=== PATIENT | female | born 1975 | race Caucasian/White ===

== ENCOUNTER 2022-04-22 09:23 | Outpatient (CLI) | payer OTHER, SELFPAY ==
[2022-04-22 14:15] LABS: Chloride* 105 mmol/L (96-114); Sodium* 139 mmol/L (135-149)
[2022-04-22 14:16] LABS: Potassium* 4.6 mmol/L (3.6-5.1)
[2022-04-22 14:18] LABS: Blood Urea Nitrogen* 15 mg/dL (5-24); Carbon Dioxide* 29 mmol/L (20-32); Cholesterol* 195 mg/dL (90-199); Creatinine* 0.8 mg/dL (0.5-1.5); Estimated Glomerular Filt Rate 93 ml/min
[2022-04-22 14:19] LABS: Calcium* 9.3 mg/dL (8.4-10.6); Glucose* 103 mg/dL (60-115); HDL Cholesterol* 68 mg/dL (>=50); LDL Cholesterol Calculated 111 mg/dL (<100); Triglycerides* 80 mg/dL (40-149)
== END 2022-04-22 09:24 | disposition home or self-care (01) ==
PROVIDERS: PCP Family Medicine; Visit Provider Family Medicine
DX: Z00.00 Encounter for general adult medical examination without abnormal findings (principal); Z13.1 Encounter for screening for diabetes mellitus; Z13.6 Encounter for screening for cardiovascular disorders
CPT/HCPCS: 80048; 80061

== ENCOUNTER 2023-02-24 09:28 | Outpatient (CLI) | payer BC, SELFPAY ==
--- NOTE | 2023-02-24 09:15 | CRLHL7_ITS ---
For Patients: As a result of the Century Cures Act, medical imaging exams and procedure reports are released immediately into your electronic medical record. You may view this report before your referring provider. If you have questions, please contact your health care provider. BILATERAL SCREENING MAMMOGRAM WITH COMPUTER-AIDED DETECTION AND TOMOSYNTHESIS TECHNIQUE: CC, MLO and Implant displaced views were obtained. These mammographic images have been obtained using full-field digital technique. These mammographic images were interpreted with the benefit of computer-aided detection. Breast Tomosynthesis was used in this interpretation. COMPARISON FILM: 07/06/21, 07/06/18. FINDINGS: The breasts are heterogeneously dense, which may obscure small masses IMPRESSION: There is no radiographic evidence for malignancy. ASSESSMENT: BI-RADS Category 2: Benign RECOMMENDATION: Routine screening mammogram in 1 year. A lay language report of this examination will be provided to the patient. Rafa Jimenez M.D. Diagnostic Radiologist [email or web address] MARTHA/Dictated by: Rafa Jimenez MD @ 02/24/2023 10:58:00 AM (Electronically Signed)
== END 2023-02-24 09:29 | disposition home or self-care (01) ==
LOC: MAMMO 09:28
PROVIDERS: PCP Family Medicine; Visit Provider Family Medicine
DX: Z12.31 Encounter for screening mammogram for malignant neoplasm of breast (principal); R92.2 Inconclusive mammogram
CPT/HCPCS: 77063; 77067

== ENCOUNTER 2025-01-24 09:53 | Outpatient (CLI) | payer OTHER, SELFPAY | END 2025-01-24 09:54 | disposition home or self-care (01) | PROVIDERS: PCP Family Medicine; Visit Provider Family Medicine | DX: F41.9 Anxiety disorder, unspecified (principal); Z13.0 Encounter for screening for diseases of the blood and blood-forming organs and certain disorders involving the immune mechanism; Z13.1 Encounter for screening for diabetes mellitus; Z13.29 Encounter for screening for other suspected endocrine disorder | CPT/HCPCS: 80048; 84443 ==

== ENCOUNTER 2025-03-07 14:52 | Outpatient (CLI) | payer OTHER, SELFPAY ==
--- NOTE | 2025-03-07 15:00 | CRLHL7_ITS ---
For Patients: As a result of the Century Cures Act, medical imaging exams and procedure reports are released immediately into your electronic medical record. You may view this report before your referring provider. If you have questions, please contact your health care provider. INDICATION: BILATERAL SCREENING MAMMOGRAM W/IMPLANTS, ASYMPTOMATIC 49 Y/O FEMALE COMPARISON: 02/24/2023, 07/06/2021, 07/06/2018 TECHNIQUE: Digital mammogram in CC and MLO projections including computer-aided detection (CAD) and tomosynthesis. BREAST COMPOSITION: The breasts are heterogeneously dense, which may obscure small masses. FINDINGS: No suspicious findings. ASSESSMENT: BI-RADS 2 Benign RECOMMENDATION: Annual screening mammogram. A lay language report of this examination will be provided to the patient. Dictated by: Rafa Jimenez MD @ 03/10/2025 09:48:42 (Electronically Signed)
--- OUTSIDE RECORDS SUMMARY | 2025-03-08 00:27 | XMS_ITS | Data Portability ---
Author Organization DARIEN Hou RECOOPERER, [id number] Address [address] [place] [facility] [place] [address] Assessment No assessment recorded. Plan of Treatment Reminders Order Date Submit Date Provider Last Modified By Organization Details Last Modified Time Details Appointments None recorded. Lab TSH, serum or plasma 2022 023 [facility], [address] [place] [address], [address], [place], [address], 3 00:33:35 hemoglobin A1c, QN, blood 2022 023 [facility], [address] [place] [address], [address], [place], [address], 3 00:29:48 hemoglobin (Hb), fingerstick , blood 2019 020 [email or web address] [id number]_gzzthiv le_edina, [address], [facility] [address], [place], [address], 0 18:18:00 hemoglobin (Hb), fingerstick , blood 2019 020 [email or web address] Zy772_miyngec le_[place], [address] [facility] [address], [place], [address], 0 11:05:22 test, urine 2019 020 [email or web address] [id number]_zxwrcts le_[facility], [address], [place], [address], 0 11:05:22 pathology study 2019 020 [facility], [address] [place], [address], 0 11:07:41 Referral None recorded. Procedures None recorded. Surgeries None recorded. Imaging US, pelvis, transabdomi nal + transvagina l 2019 020 [email or web address] [id number] baldwin, [address], [address], [place], [address], 0 13:37:36 Medication Orders estradiol 0.05 mg/24 hr semiweekly transdermal patch 2022 023 [id number], [address] [place], [place], [address], 3 15:21:16 Patient TargetsNo targets recorded. Patient InstructionsNo instructions recorded. Reason for Referral None Reported. Results Created Date Observation Date Name Description Value Unit Range Abnormal Flag Note LastModifiedBy Organization Detail LastModifiedTime 09/16/20 20 09/16/2020 hemog lobin (Hb), finge rstic k, blood fingerstick hemoglobin 13.2 g/dL 12.0-1 5.0 Not Available [id number]_mcvprvwparvin baldwin [address], [place], [address], 09/16/2020 16:54:57 08/17/20 20 08/17/2020 pregn aleida test, urine Unknown Analyte negati ve Not Available [id number]_xqaegjason clayton [address], [place], [address], 08/17/2020 10:42:09 11/30/08/17/2020 patho logy study case report See note CASE REPOR T ----- ----- ----- ----- ----- ----- ----- ----- Surgi boy Patho logy Case: [id number] Autho raul cortez Provi vishal: Christiano Henning MD Colle cted: 08/17 10:23 AM [facility] ing [facility] elizabeth: 08/17 03:11 PM [facility] Patho logis t: Jenny Griffin MD Speci men: Endom etriu m, Biops y FINAL DIAGN OSIS ----- ----- ----- ----- ----- ----- ----- ----- Endom etriu m, biops yBeni gn proli ferat ing endom etriu m. Elect abe tyson by Jenny Griffin MD on 2019 at 10:07 AM GROSS DESCR IPTIO N ----- ----- ----- ----- ----- ----- ----- ----- EMB: Ceci tyson, 0.40 g. IT-1 MICRO SCOPI C DESCR IPTIO N ----- ----- ----- ----- ----- ----- ----- ----- Secti ons show maylinig n proli ferat ing endom etriu m. There is no hyper plasi a or malig rodney . Benig suki endoc ervix is also prese nt. Not Available [facility] [address] [place], [address], 08/18/2020 11:07:41 08/17/20 20 08/17/2020 hemog lobin (Hb), finge rstic k, blood fingerstick hemoglobin 12.2 g/dL 12.0-1 5.0 Not Available [id number] yaa_[place] [address], [place], [address], 08/17/2020 10:40:03 07/14/20 23 07/14/2023 HEMOG LOBIN A1C hemoglobin A1C 5.5 % <5.7 Kristin l <5.7% Predi abete s 5.7-6 .4% Diabe remington 6.5% or highe r Note: Adopt ed from ADA conse nsus guide lines . Not Available [facility] [address], [place], [address], 07/15/2023 00:29:48 07/14/2007/14/2023 TSH WITH REFLE X TO FREE T4 TSH 1.51 uIU/m L 0.30-4 .20 Not Available [facility] [address] [facility] [address], [place], [address], 07/15/2023 00:33:35 08/17/20 20 US, pelvi s, trans abdom inal + trans vagin al No observ ation record ed. lkoidahl [address] [facility], [place], [address], 08/18/2020 09:19:47 Result Notes None recorded. Procedures Surgical History Date Name Laterality Status Provider Name and Address Organization Details Recorded Time 02/17/20 Date of Last [place] [address] [facility], [place], [address], [place] - [facility] 07/14/2023 15:09:49 09/03/20 20 Laparoscopy completed Myriam Jorgensen (PAZ) [place] - [facility] 09/16/2020 16:52:31 09/03/20 20 TOTAL HYSTERECTOMY, LAPAROSCOPIC, WITH BILATERAL SALPINGECTOMY (SURG) completed Shreya León (TERMED) [place] - [facility] 09/07/2020 17:30:42 08/17/20 20 Endometrial Biopsy Procedure Note ([facility]) [place] [address] [facility],[address], [place], [address], [facility]ly [facility], [facility] RECOOPERER 08/17/2020 23:26:29 08/17/20 20 endomyocardial biopsy completed Anya Neville(T erm) [facility] REC[facility] 08/18/2020 14:50:40 06/02/20 20 Date of Last Pap Smear completed Noelle Dodge (TERMED) [facility] RECOOPERER 06/09/2020 10:06:33 tonsillectomy completed Myriam Jorgensen (PAZ) [facility] 09/16/2020 16:52:32 Insert intrauterine device completed Myriam Flemal (PAZ) [facility] 09/16/2020 16:52:32 augmentation of breast with immediate insertion of breast prosthesis completed Myriam Flemal (PAZ) [facility] 09/16/2020 16:52:32 Remove intrauterine device completed Myriam Flemal (PAZ) [facility] 09/16/2020 16:52:32 tooth extraction completed Myriam Flemal (PAZ) [facility] 09/16/2020 16:52:32 Imaging Results None recorded. Procedure Notes None recorded. Medical Equipment None Reported. Allergies Allergen ID Allergen Name Allergen Category Reaction Reaction Severity Criticality Documentation Date Start Date Code Code System Note Provider Name and Address Organization Details Recorded Time 535379 Product containin g penicilli n (product) medicatio n Not available Not available Not available 04/24/2020 34693 8001 SNOMED *Note : 11/12 - Unkno wn Not Available [facility] 0 16:58:47 Medications Name Sig Start Date Stop Date Status Note LastModified by Organization Details LastModified Time estradiol 0.05 mg/24 hr semiweekly transdermal patch APPLY 1 PATCH TOPICALLY TO THE SKIN 2 TIMES A WEEK active Not Available Not Available No t Available prednisolon e acetate 1 % eye drops,suspe nsion 09/12 completed Not Available Not Available Not Available oxycodone 5 mg tablet TAKE 1-2 TABLETS BY MOUTH EVERY 4-6 HOURS NEEDED FOR MODERATE TO SEVERE PAIN 09/16 completed Not Available Not Available Not Available Vitals Date Recorded Body height Body mass index (BMI) Body weight Systolic blood pressure Diastolic blood pressure Provider Name and Address Organization Details Last Updated DateTime 10/16/2020 167.64 cm 25.7 kg/m2 52798.62 g 118 mm[Hg] 78 mm[Hg] Katina Garcia TERMED [facility] RECOOPERER 1 12:00:12 Date Recorded Body weight Body mass index (BMI) Body height Systolic blood pressure Diastolic blood pressure Provider Name and Address Organization Details Last Updated DateTime 07/14/2023 33155.82 g 25 kg/m2 167.64 cm 120 mm[Hg] 70 mm[Hg] Lucy Lucianojoséblake [facility] RECOOPER[facility] 3 15:01:00 Date Recorded Body height Body mass index (BMI) Body weight Systolic blood pressure Diastolic blood pressure Provider Name and Address Organization Details Last Updated DateTime 08/17/2020 167.64 cm 25.3 kg/m2 92398 g 130 mm[Hg] 80 mm[Hg] Katina Garcia TERMED [facility] RECOOPER[facility] 0 10:39:44 Date Recorded Body height Body mass index (BMI) Body weight Systolic blood pressure Diastolic blood pressure Provider Name and Address Organization Details Last Updated DateTime 09/16/2020 167.64 cm 24.4 kg/m2 49075.88 g 120 mm[Hg] 70 mm[Hg] Myriam Jorgensen (PAZ) [facility] RECOOPERER 0 16:55:35 Social History Question Answer Notes LastModified by Organizat ion Details LastModified Time Tobacco Smoking Status Former Smoker Margaret grossman, [facility] RECOOPERER 07/14/2023 08:15:24 What Is Your Level Of Caffeine Consumption? Moderate 3-4c/day Information not available 07/14/2023 Which Illicit Or Recreational Drugs Have You Used? Denies Illicit Substance Abuse Information not available 07/14/2023 Children's Names/ Jennifer-1992, Joesph-06/30, Cody-[birth year]15/20 09 Information not available 07/14/2023 Country Of [facility] Informat ion not available 07/14/2023 History Of Domestic Violence No Denies All Domestic Violence Information not available 04/27/2020 Spouse/Partners Name Noé Aly Information not available 07/14/2023 What Is Your Relationship Status? Information not available 07/14/2023 Are You Sexually Active? Yes Information not available 07/14/2023 How Much Tobacco Do You Smoke? No Information not available 07/14/2023 Sex: Unknown Functional Status Question Answer Note LastModified by Organizat ion Details LastModified Time Do you use any illicit or recreational drugs? No Information not available 07/14/2023 What is your level of alcohol consumption? 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 Moderate Moderate Amount of Exercise (1-3 times weekly) Information not available 04/27/2020 Mental Status None recorded. Family History Relationship Description Onset Age of this Age Resolved Age Notes LastModified by Organization Details LastModified Time Mother Benign neoplasm of colon Colon Polyp, Benign Not available 04/27/2020 01:05:31 Paternal Grandmother Family history of diabetes mellitus Diabet es Not available 04/27/2020 01:05:31 Father Hyperlipidem ia High Choles terol / Hyperl ipidem ia Not available 04/27/2020 01:05:31 Medical History No medical history recorded. Gynecological History Statement/Question Response History of Abnormal PAP Y HPV Test Negative Age at Menarche: 14 Date of Last Mammogram 02/16/2022 Date of LMP 07/19/2020 Current Control Method Vasectomy Date of Last Pap Smear 06/02/2020 Obstetrics History GPAL:G 3 P 3 0 0 3 Type Value Full Term 3 Living 3 Total 3 Immunizations Vaccine Type Date Status Note Provider Nam e and Address Organization Details Recorded Time Tdap 05/27/2009 completed Not Available [facility] 04/27/2020 01:10:45 Influenza, MDCK, quadrivalent, PF 07/14/2023 completed Lucy grossman, [place] - [facility] 07/14/2023 15:41:24 Past Encounters Encounter ID Performer Location Encounter Start Date Encounter Closed Date Diagnosis/Indication Diagnosis SNOMED-CT Code Diagnosis ICD10 Code Diagnosis Note [id number] LILLY E[place] MD [id number] [facility] [facility] [place] [address] 06/02/2020 16:20:40 06/02/2020 17:34:54 Gynecologic examination 10454408 Z01.419 - Encouraged breast self-aware ness and recommend yearly mammogram. - Encouraged regular exercise. - Calcium and vitamin D intake discussed. - Discussed appropriat e breast cancer screening and mammogram intervals. - Counseled on perimenopa use signs/symp toms. History of dysplasia of cervix 287442593 Z87.410 Fatigue 92800452 R53.83 TSH checked today. Menorrhagia 934461746 N9 2.0 Reviewed options for menorrhagi a including ibuprofen, tranexamic acid, control pills, hormonal IUD, ablation, and hysterecto my. Pt has failed IUD (expulsed) , does not like OCPs, and would like to proceed with definitive surgical managment (hysterect annika). Plan TLH/BS. Needs US / embx at preop visit. [id number] MIRI LUND MD [id number] [address] [address] 08/17/2020 09:57:21 08/17/2020 11:09:59 Menorrhagia 449154623 N92.0 [id number] LILLY EASLEY MD [id number] THDA_ED [address] [address] 08/17/2020 10:19:16 08/17/2020 12:07:50 Menorrhagia 542787267 N92.0 - I discussed risks of surgery to include but not be limited to bleeding, infection, injury to bowel, bladder, vessels, ureters and other structures . We reviewed the risks of thromboemb olic events and anesthesia risks. II discussed recovery, time off from work, and all restrictio ns. We reviewed the pros and cons of keeping the ovaries and cervix. All questions answered to the patient s verbalized understand ing. She wants to move forward with hysterecto my. - Ok for Ancef due to mild reaction and no h/o other allergic reactions to PCN [id number] LILLY EAS[place] MD [id number] THDALE_ED ADAM [address] [place] [address],[address] [place] [address] 09/16/2020 16:42:32 09/21/2020 16:50:08 Postoperative visit 688581417 Z09 - Return to light activity discussed - F/u 6-8 weeks [id number] LILLY E[place] MD [id number] TH[facility]_ED [place] [address] [place] [address],[address] [place] [address] 10/16/2020 11:50:33 10/16/2020 12:17:39 Postoperative visit 127950653 Z09 - Return to full activity, but continue pelvic rest until after next visit. 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 - Encouraged regular exercise. - Calcium and vitamin D intake discussed. - Discussed appropriat e breast cancer screening and mammogram intervals. - Counseled on perimenopa use signs/symp toms.- Recommend colonoscop y, she will schedule- Plan fasting screening labs next year. Menopausal flushing 1983 83679 N95.1 Discussed options for therapy including dressing in layers, use of cold packs, OTC supplement s, estrogen therapy. Reviewed indication s for E/P therapy to include vasomotor symptoms. Discussed likely length of appropriat e therapy. Interested in trial hormone therapy. She denies contraindi cations to ERT. Thyroid di sorder screening 075421381 Z13.29 Diabetes m ellitus screening 640755349 Z13.1 Administra tion of influenza vaccine 93144888 Z23 Health Concerns Section Related Observation LastModified by Organization Detai ls LastModified Time None Recorded Concern Status LastModified by Organization Details LastModified Time None Recorded Advance Directives Directive None Recorded Payers Insurance Date Sequence Insurance Name Policy Number Policy Perales Covered Member ID Perales Member ID Guarantor Name 07/14/2023 1 [employer] - [employer] (PPO) [id number] Martha Aly [id number] Martha Yek 07/19/2023 1 [place] [id number] Martha Aly [id number] Martha Yek 07/14/2023 1 [facility] [employer] - [employer]IG[employer] [id number] Martha Aly [id number] Martha Yek 12/07/2020 PAYMENT PLAN Martha Aly Notes Date Note Type Note Provider Name and Address Organization Details Recorded Time 08/17/2020 text/html Pre-Op ([facility])Reported bypatient.Procedure :TLH/BS Procedure Date:09/03/2020 Surgeon:Dr. Easley Procedure Location[facility] Reason for Procedure:menorrhag ia Past Medical History significant for:asthma: no; CAD: no; diabetes: no; sleep apnea: no Bleeding Risk: History of:bleeding or easy bruising: no History of bleeding after:loss of teeth or dental extractions: no; crowns Is the patient currently taking:antihistamin es: no; aspirin or ibuprofen products: no; blood thinners: no; seizure medication: no Anesthetic risk:difficulty waking up from anesthesia: no Family History of:adverse reactions to anesthesia: no Periods very heavy every time gets worse. - 2 days of complete misery. +COVID 07/21. Stx resolved. Uterus 9.8 x 5.2 x 4.5, EMS 12.8mm [place] [address] [facility],[address], [place], [address], [place] [facility] 08/17/2020 23:34:18 09/16/2020 text/html Post-Op CYTOLOGIST ([facility])Reported bypatient.Procedure Date:09/03/2020 Surgical Procedure:total hysterectomy: laparoscopic; salpingectomy: bilateral, laparoscopic Pathology:surgical findings and pathology reviewed Postoperative Symptoms:pain well-controlled; voiding without difficulty; return to GI function; no fever; no chills; no nausea; no diarrhea; no incisional redness; no incisional drainage; incision(s) closed Postoperative Complications:none No bleeding Occ Tylenol use, but pain overall well controlled. Back to work after [place] - 6 weeks - because she needs to [place] [address], [place], [address], [facility] - [facility] 09/20/2020 20:16:35 10/16/2020 text/html Post-Op CYTOLOGIST ([facility])Reported bypatient.Procedure Date:09/03/2020 Surgical Procedure:total hysterectomy: laparoscopic; salpingectomy: bilateral, laparoscopic Pathology:surgical findings and pathology reviewed Postoperative Symptoms:pain well-controlled; voiding without difficulty; return to GI function; no fever; no chills; no nausea; no diarrhea; no incisional redness; no incisional drainage; incision(s) closed Postoperative Complications:none Feeling great, ready to get back to work[place] [address] [facility],[address], [place], [address], [facility] - [facility] 10/16/2020 12:06:11 07/14/2023 text/html Annual Premenopausal ([facility])Reported bypatient.Patient Relationship To Practice:vannessa tyson patient Current Medical History:no active medical problems Relevant Family History:no family history of breast cancer; no family history of ovarian cancer; no family history of uterine cancer; no family history of colon cancer; no family history of blood clots/DVT Menstrual History:Frequency of Menses: monthly; Duration of Flow: 4 days; Quantity of Flow: heavy; Clots: yes; Cramps: yes; Periods are so bad x 2 days. 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 Would be interested [place] [address] [facility],[address], [place], [address], [place] - [facility] 07/14/2023 15:24:47 OBGyn Episode No OBEpisode recorded.
--- OUTSIDE RECORDS SUMMARY | 2025-03-08 00:27 | XMS_ITS | Data Portability ---
Author Organization DARIEN Hou INFORMATION TECHNOLOGY ASSISTANT, [id number] Address [address] [address] [facility] [place] [address] Assessment No assessment recorded. Plan of Treatment Reminders Order Date Submit Date Provider Last Modified By Organization Details Last Modified Time Details Appointments None recorded. Lab TSH, serum or plasma 2022 023 [facility], [address] [place] [address], [address], [place], [address], 3 00:33:35 hemoglobin A1c, QN, blood 2022 023 [facility], [address] [place] [address], [address], [place], [address], 3 00:29:48 hemoglobin (Hb), fingerstick , blood 2019 020 [email or web address] [id number]_zhrkxja le_edina, [address], [facility] [address], [place], [address], 0 18:18:00 hemoglobin (Hb), fingerstick , blood 2019 020 [email or web address] Bn173_sswlolq le_edina, [address] [facility], [place], [address], 0 11:05:22 test, urine 2019 020 [email or web address] Jl457_hujxrat le_edina, [address], [place], [address], 0 11:05:22 pathology study 2019 020 [facility], [address] [place], [address], 0 11:07:41 Referral None recorded. Procedures None recorded. Surgeries None recorded. Imaging US, pelvis, transabdomi nal + transvagina l 2019 020 [email or web address] My573_dzpzptrparvin baldwin, [address], [address], [place], [address], 0 13:37:36 Medication Orders estradiol 0.05 mg/24 hr semiweekly transdermal patch 2022 023 [id number], [address] [place], [place], [id number], 3 15:21:16 Patient TargetsNo targets recorded. Patient InstructionsNo instructions recorded. Reason for Referral None Reported. Results Created Date Observation Date Name Description Value Unit Range Abnormal Flag Note LastModifiedBy Organization Detail LastModifiedTime 09/16/20 20 09/16/2020 hemog lobin (Hb), finge rstic k, blood fingerstick hemoglobin 13.2 g/dL 12.0-1 5.0 Not Available [id number]_zkgzvczparvin baldwin [address], [place], [address], 09/16/2020 16:54:57 08/17/20 20 08/17/2020 pregn aleida test, urine Unknown Analyte negati ve Not Available [id number]_gpqspjason clayton [address], [place], [address], 08/17/2020 10:42:09 11/30/08/17/2020 patho logy study case report See note CASE REPOR T ----- ----- ----- ----- ----- ----- ----- ----- Surgi boy Patho logy Case: [id number] Autho raul cortez Provi vishal: Christiano Henning MD Colle cted: 08/17 10:23 AM Order ing [facility] Recei elizabeth: 08/17 03:11 [...] ervix is also prese nt. Not Available [facility] [address] [place], [address], 08/18/2020 11:07:41 08/17/20 20 08/17/2020 hemog lobin (Hb), finge rstic k, blood fingerstick hemoglobin 12.2 g/dL 12.0-1 5.0 Not Available [id number]_kpqxozo yaa_[place] [address], [place], [address], 08/17/2020 10:40:03 07/14/20 23 07/14/2023 HEMOG LOBIN A1C hemoglobin A1C 5.5 % <5.7 Kristin l <5.7% Predi abete s 5.7-6 .4% Diabe remington 6.5% or highe r Note: Adopt ed from ADA conse nsus guide lines . Not Available [facility] [address], [place], [address], 07/15/2023 00:29:48 07/14/2007/14/2023 TSH WITH REFLE X TO FREE T4 TSH 1.51 uIU/m L 0.30-4 .20 Not Available [facility] [address] [facility] [address], [place], [address], 07/15/2023 00:33:35 08/17/20 20 US, pelvi s, trans abdom inal + trans vagin al No observ ation record ed. lkoidahl [address], [facility], [place], [address], 08/18/2020 09:19:47 Result Notes None recorded. Procedures Surgical History Date Name Laterality Status Provider Name and Address Organization Details Recorded Time 02/17/20 Date of Last [place] [address] [facility],[address], [place], [address], [place] - [facility] INFORMATION TECHNOLOGY ASSISTANT 07/14/2023 15:09:49 09/03/20 20 Laparoscopy completed Myriam Jorgensen (PAZ) [place] - [facility] INFORMATION TECHNOLOGY ASSISTANT 09/16/2020 16:52:31 09/03/20 20 TOTAL HYSTERECTOMY, LAPAROSCOPIC, WITH BILATERAL SALPINGECTOMY (SURG) completed Shreya León (TERMED) [place] - [facility] INFORMATION TECHNOLOGY ASSISTANT 09/07/2020 17:30:42 08/17/20 20 Endometrial Biopsy Procedure Note ([facility]) [place] [address] [facility],[address], [place], [address], [facility] INFORMATION TECHNOLOGY ASSISTANT 08/17/2020 23:26:29 08/17/20 20 endomyocardial biopsy completed Anya Neville(T erm) [facility] INFORMATION TECHNOLOGY ASSISTANT 08/18/2020 14:50:40 06/02/20 20 Date of Last Pap Smear completed Noelle Dodge (TERMED) [facility] INFORMATION TECHNOLOGY ASSISTANT 06/09/2020 10:06:33 tonsillectomy completed Myriam Jorgensen (PAZ) [facility] 09/16/2020 16:52:32 Insert intrauterine device completed Myriam Flemal (PAZ) [facility] 09/16/2020 16:52:32 augmentation of breast with immediate insertion of breast prosthesis completed Myriam Flemal (PAZ) [facility] 09/16/2020 16:52:32 Remove intrauterine device completed Myriam Flemal (PAZ) [facility] 09/16/2020 16:52:32 tooth extraction completed Myriam Flemal (PAZ) [facility] 09/16/2020 16:52:32 Imaging Results None recorded. Procedure Notes None recorded. Medical Equipment None Reported. Allergies Allergen ID Allergen Name Allergen Category Reaction Reaction Severity Criticality Documentation Date Start Date Code Code System Note Provider Name and Address Organization Details Recorded Time 087143 Product containin g penicilli n (product) medicatio n Not available Not available Not available 04/24/2020 90894 8001 SNOMED *Note : 11/12 - Unkno wn Not Available [facility] 16:58:47 Medications Name Sig Start [...] Updated DateTime 10/16/2020 167.64 cm 25.7 kg/m2 13710.62 g 118 mm[Hg] 78 mm[Hg] Katina Gracia TERMED [facility] INFORMATION TECHNOLOGY ASSISTANT 1 12:00:12 Date Recorded Body weight Body mass index (BMI) Body height Systolic blood pressure Diastolic blood pressure Provider Name and Address Organization Details Last Updated DateTime 07/14/2023 66966.82 g 25 kg/m2 167.64 cm 120 mm[Hg] 70 mm[Hg] Lucy Lucianojoséblake [facility] INFORMATION TECHNOLOGY ASSISTANT 3 15:01:00 Date Recorded Body height Body mass index (BMI) Body weight Systolic blood pressure Diastolic blood pressure Provider Name and Address Organization Details Last Updated DateTime 08/17/2020 167.64 cm 25.3 kg/m2 58092 g 130 mm[Hg] 80 mm[Hg] Katina Garcia TERMED [facility] INFORMATION TECHNOLOGY ASSISTANT 0 10:39:44 Date Recorded Body height Body mass index (BMI) Body weight Systolic blood pressure Diastolic blood pressure Provider Name and Address Organization Details Last Updated DateTime 09/16/2020 167.64 cm 24.4 kg/m2 67137.88 g 120 mm[Hg] 70 mm[Hg] Myriam Jorgensen (PAZ) [facility] INFORMATION TECHNOLOGY ASSISTANT 0 16:55:35 Social History Question Answer Notes LastModified by Organizat ion Details LastModified Time Tobacco Smoking Status Former Smoker Margaret grossman, [facility] INFORMATION TECHNOLOGY ASSISTANT 07/14/2023 08:15:24 What Is Your Level Of Caffeine Consumption? Moderate 3-4c/day Information not available 07/14/2023 Which Illicit Or Recreational Drugs Have You Used? 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 Information not available 07/14/2023 What is your [...] 07/14/2023 completed Lucy grossman, [place] - [facility] INFORMATION TECHNOLOGY ASSISTANT 07/14/2023 15:41:24 Past Encounters Encounter ID Performer Location Encounter Start Date Encounter Closed Date Diagnosis/Indication Diagnosis SNOMED-CT Code Diagnosis ICD10 Code Diagnosis Note [id number] LILLY E[place] MD [id number] [facility] [facility] [place] [address] 06/02/2020 16:20:40 06/02/2020 17:34:54 Gynecologic examination 29077197 Z01.419 - Encouraged breast self-aware ness and recommend yearly mammogram. - Encouraged regular exercise. - Calcium and vitamin D intake discussed. - Discussed appropriat e breast cancer screening and mammogram intervals. - Counseled on perimenopa use signs/symp toms. History of dysplasia of cervix 870017904 Z87.410 Fatigue 42998006 R53.83 TSH checked today. Menorrhagia 241310721 N9 2.0 Reviewed options for menorrhagi a including ibuprofen, tranexamic acid, control pills, hormonal IUD, ablation, and hysterecto my. Pt has failed IUD (expulsed) , does not like OCPs, and would like to proceed with definitive surgical managment (hysterect annika). Plan TLH/BS. Needs US / embx at preop visit. [id number] MIRI LUND [id number] [address] [address] 08/17/2020 09:57:21 08/17/2020 11:09:59 Menorrhagia 262229959 N92.0 [id number] LILLY EAS[place] MD [id number] THDA_ED [address] [address] 08/17/2020 10:19:16 08/17/2020 12:07:50 Menorrhagia 316309115 N92.0 - I discussed risks of surgery [...] All questions answered to the patient s verbalize d understand ing. She wants to move forward with hysterecto my. - Ok for Ancef due to mild reaction and no h/o other allergic reactions to PCN [id number] LILLY E[place] MD [id number] TH[facility]_ED ADAM [address] [place] [address],[address] [place] [address] 09/16/2020 16:42:32 09/21/2020 16:50:08 Postoperative visit 840075623 Z09 - Return to light activity discussed - F/u 6-8 weeks [id number] LILLY E[place] MD [id number] [facility]_ED ADAM [address] [place] [address],[address] [place] [address] 10/16/2020 11:50:33 10/16/2020 12:17:39 Postoperative visit 148581010 Z09 - Return to full activity, but continue pelvic rest until after next visit. 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 - Encouraged regular exercise. - Calcium and vitamin D intake discussed. - Discussed appropriat e breast cancer screening and mammogram intervals. - Counseled on perimenopa use signs/symp toms.- Recommend colonoscop y, she will schedule- Plan fasting screening labs next year. Menopausal flushing 1983 01056 N95.1 Discussed options for therapy including dressing in layers, use of cold packs, OTC supplement s, estrogen therapy. Reviewed indication s for E/P therapy to include vasomotor symptoms. Discussed likely length of appropriat e therapy. Interested in trial hormone therapy. She denies contraindi cations to ERT. Thyroid di sorder screening 471438318 Z13.29 Diabetes m ellitus screening 435404676 Z13.1 Administra tion of influenza vaccine 15406673 Z23 Health Concerns Section Related Observation LastModified by Organization Detai ls LastModified Time None Recorded Concern Status LastModified by Organization Details LastModified Time None Recorded Advance Directives Directive None Recorded Payers Insurance Date Sequence Insurance Name Policy Number Policy Perales Covered Member ID Perales Member ID Guarantor Name 07/14/2023 1 [employer] - [employer] (PPO) [id number] Martha Aly [id number] Martha Yek 07/19/2023 1 [place] [id number] Martha Aly [id number] Martha Aly 07/14/[address] [facility] [place] - [employer] - [employer] [id number] Martha Aly [id number] Martha Yek 12/07/2020 PAYMENT PLAN Martha Aly Notes Date Note Type Note Provider Name and Address Organization Details Recorded Time 08/17/2020 text/html Pre-Op ([facility])Reported bypatient.Procedure :TLH/BS Procedure Date:09/03/2020 Surgeon:Dr. Easley Procedure Location:[facility] Reason for Procedure:menorrhag ia Past Medical History [...] EMS 12.8mm [place] [address] [facility],[address], [place], [address], [place] - [facility] INFORMATION TECHNOLOGY ASSISTANT 08/17/2020 23:34:18 09/16/2020 text/html Post-Op MS SQL DBA ([facility])Reported bypatient.Procedure Date:09/03/2020 Surgical Procedure:total hysterectomy: laparoscopic; [...] be [place] [address] [facility],[address], [place], [address], [facility] - [facility] INFORMATION TECHNOLOGY ASSISTANT 09/20/2020 20:16:35 10/16/2020 text/html Post-Op MS SQL DBA ([facility])Reported bypatient.Procedure Date:09/03/2020 Surgical Procedure:total hysterectomy: laparoscopic; salpingectomy: bilateral, laparoscopic Pathology:surgical findings and pathology reviewed Postoperative Symptoms:pain well-controlled; voiding without difficulty; return to GI function; no fever; no chills; no nausea; no diarrhea; no incisional redness; no incisional drainage; incision(s) closed Postoperative Complications:none Feeling great, ready to get back to work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 Would be interested [place] [address] [facility],[address], [place], [address], [place] - [facility] INFORMATION TECHNOLOGY ASSISTANT 07/14/2023 15:24:47 OBGyn Episode No OBEpisode recorded.
== END 2025-03-07 14:53 | disposition home or self-care (01) ==
LOC: MAMMO 14:52
PROVIDERS: PCP Family Medicine; Visit Provider Family Medicine
DX: Z12.31 Encounter for screening mammogram for malignant neoplasm of breast (principal); R92.333 Mammographic heterogeneous density, bilateral breasts; Z98.82 Breast implant status
CPT/HCPCS: 77063; 77067